=== PATIENT | female | born 2000 | race Caucasian/White ===

== ENCOUNTER 2020-10-30 01:53 | Observation (INO) | payer OTHER, SELFPAY ==
[2020-10-30] VITALS (26 sets, daily range): BP systolic 102–145; BP diastolic 53–91; PULSE 99–154; RESP 13–25; TEMP 35.8–39.8; O2SAT 97–100; BMI 17.9
--- NOTE | ~2020-10-30 | CT_ITS ---
EXAMINATION: CT abdomen pelvis w con DATE: 10/30/2020 03:34 INDICATION: Right flank pain. TECHNIQUE: Computed tomography (CT) of the abdomen and pelvis was performed with 100 mL Omnipaque 350 intravenous contrast. Automated exposure control and iterative reconstruction technique were employe d. The dose-length product was 209.56 mGy-cm. COMPARISON: None. FINDINGS: The visualized portions of the lung bases are clear without pneumonia or pleural effusion. The heart size is normal. No pericardial effusion. The liver, gallbladder, spleen, pancreas, and adre nal glands are normal. There is a 5 mm cyst in left kidney. Right kidney demonstrates a striated neph rogram, consistent with pyelonephritis. There are no dilated loops of bowel. The appendix is not visu alized. There are no pathologically enlarged lymph nodes. There is trace physiologic fluid in the pel vis. There is levocurvature of lumbar spine. IMPRESSION: 1. Right-sided pyelonephritis. Reviewed, dictated and finalized at location A.
--- NOTE | 2020-10-30 02:09 | PC.NURSE ---
pt to ed c mother c/o right flank pain. reports she may have had urinary frequency/burning but it felt better. woke up last night with increased pain. tearful. febrile on arrival.
[2020-10-30] MEDS: SODIUM CHLORIDE 0.9% IV 1,000 ML 999 ML IV CONT ×2 (02:36→03:35)
[2020-10-30 02:49] LABS: Basophils Percent Auto 0.3 % (0.2-1.2); Eosinophils Percent Auto 0.3 % (0-4.4); Hematocrit 40.6 % (37.0-47.0); Hemoglobin 13.4 g/dL (12.0-15.0); Immature Granulocyte Absolute 0.02 K/mm3 (0.00-0.031); Immature Granulocyte Percent A 0.2 % (0-0.5); Lymphocytes Absolute Auto 0.86 K/mm3 (0.9-3.2); Lymphocytes Percent Auto 9.1 % (18.3-44.2); Mean Corpuscular Hemoglobin 30.9 pg (26-34); Mean Corpuscular Volume 93.8 fl (80-100); Mean Platelet Volume 9.5 fl (7.4-10.4); Monocytes Absolute Auto 1.2 K/mm3 (0.1-0.6); Monocytes Percent Auto 12.9 % (2.6-8.5); Neutrophils Absolute Auto 7.3 K/mm3 (1.3-6.7); Neutrophils Percent Auto 77.2 % (45.5-73.1); Platelet Count Result 277 k/mm3 (150-375); Red Blood Count 4.33 M/mm3 (4.2-5.4); Red Cell Distribution Width 12.4 % (11.5-14.5); White Blood Count 9.5 K/mm3 (4.5-10.0)
[2020-10-30 02:59] LABS: Add Urine Microscopic? YES; Appearance Urine Clear (Clear); Bilirubin Urine Negative (Negative); Blood Urine Negative (Negative); Color Urine Yellow (Yellow); Glucose Urine UA Negative (Negative); Ketones Urine Negative (Negative); Leukocyte Esterase Ur 1+ LEU/UL (Negative); Mucus Urine Rare /lpf; Nitrate Urine Negative (Negative); Protein Urine Negative (Negative); Specific Grav Ur 1.012 (1.001-1.035); Squamous Epithelial Cell Urine Rare /hpf (Few); Urobilinogen Urine Negative mg/dL (<2.0); WBC Urine 31-50 /hpf
[2020-10-30 03:01] LABS: Lactic Acid Reflex 0.9 mmol/L (0.7-2.1)
[2020-10-30 03:02] LABS: Alanine Aminotransferase 17 U/L (4-35); Albumin Level 4.8 g/dL (3.5-5.1); Alkaline Phosphatase 67 U/L (38-126); Anion Gap 11 mmol/L (8-16); Aspartate Amino Transferase 33 U/L (14-36); Bilirubin,Total 0.3 mg/dL (0.2-1.3); Blood Urea Nitrogen 6 mg/dL (7-17); Calcium 9.3 mg/dL (8.4-10.2); Carbon Dioxide 26 mmol/L (22-30); Chloride 103 mmol/L (98-107); Estimated CRCL calculation 97 ml/min; Estimated Glomerular Filt Rate > 60; Glucose 102 mg/dL (65-105); Potassium 3.6 mmol/L (3.4-5.0); Sodium 140 mmol/L (137-145)
--- NOTE | 2020-10-30 04:06 | ED.GENADULT ---
HPI - General Adult General Chief complaint: Urogenital-Female Stated complaint: Kidney issue Time Seen by Provider: 10/30/20 01:57 Source: RN notes reviewed History of Present Illness HPI narrative: Patient presents to emergency department from home for right flank pain and fever. Patient states symptoms initially began on October 23 with some mild right-sided back pain that improved after couple days she states she had some mild dysuria during this time it also improved and symptoms came back several days later and progressively worsened patient states that starting last night began have severe right flank pain with a fever at home states this is associated dysuria she states she took Tylenol at approximately 7 PM this evening has had no other medication she denies any abdominal pain nausea or vomiting or any other symptoms Related Data Home Medications Medication Instructions Recorded Confirmed norgestimate-ethinyl estradiol 1 tablet PO DAILY 10/30/20 [Estarylla] Allergies Allergy/AdvReac Type Severity Reaction Status Date / Time Cephalosporins Allergy Rash Verified 10/30/20 01:57 Review of Systems Review of Systems: Narrative: Gen.: Denies fevers or chills ENT: Denies congestion Respiratory: Denies shortness of breath or cough CV: Denies chest pain or palpitations GI: Denies abdominal pain nausea, emesis or diarrhea reports flank pain see HPI Musculoskeletal: Denies back pain or muscle pain Neuro: Denies numbness, tingling, weakness or focal weakness Skin: Denies rash Except as documented, all other systems reviewed and negative [facility] Past Medical History Medical History (Updated 10/30/20 @ 04:42 by Hal Andino DO) Ovarian cyst Social History Social History (Updated 10/30/20 @ 04:07 by Hal Andino DO) Smoking status: Never smoker Gender identity (if verbalized by the patient): Female Sexual Orientation (if Verbalized by the Patient): Straight or Heterosexual Exam Narrative: Exam Narrative: APPEARANCE: No acute distress, nontoxic, resting in bed EYES: EOMI HEENT: Normocephalic, atraumatic, OMM RESPIRATORY: No respiratory distress Clear to auscultation bilaterally with no rhonchi wheezing or rales. CARDIOVASCULAR: Tachycardic and regular without murmurs rubs or gallops. ABDOMINAL: Soft, nontender, nondistended, no rebound or guarding mild right flank tenderness MUSCULOSKELETAl: Moves all extremities. No clubbing, cyanosis or edema. NEURO: Awake and alert. Following commands, speech normal, no focal deficits SKIN:: Warm, dry. No rashes lesions or abrasions PSYCHIATRIC: Normal affect/mood, Course Course Emergency Course: Plain CT scan I did reevaluate the patient there is no tenderness in the left lower quadrant. Suspect ovarian cyst as the patient does have a history of ovarian cyst Discussed with Dr. Mcclendon presentation work-up agrees with admission at this time Discussed with patient and family results of workup and diagnosis. Discussed need for admission. Patient and family understand and agree to current treatment plan Vital Signs Vital signs: Vital Signs Temperature 103.7 F H 10/30/20 01:54 Pulse Rate 136 H 10/30/20 01:54 Respiratory Rate 22 H 10/30/20 01:54 Blood Pressure 137/88 10/30/20 01:54 Pulse Oximetry 100 10/30/20 01:54 Temperature 103.7 F H 10/30/20 01:54 Pulse Rate 113 H 10/30/20 04:01 Respiratory Rate 13 10/30/20 04:01 Blood Pressure 111/72 10/30/20 04:01 Pulse Oximetry 100 10/30/20 04:01 Medical Decision Making Vital Signs Vital Signs: Vital Signs Temperature 103.7 F H 10/30/20 01:54 Pulse Rate 136 H 10/30/20 01:54 Respiratory Rate 22 H 10/30/20 01:54 Blood Pressure 137/88 10/30/20 01:54 Pulse Oximetry 100 10/30/20 01:54 Temperature 103.7 F H 10/30/20 01:54 Pulse Rate 113 H 10/30/20 04:01 Respiratory Rate 13 10/30/20 04:01 Blood Pressure 111/72 10/30/20 04:01 Pulse Oximetry 100
--- NOTE | 2020-10-30 05:15 | PC.NURSE ---
Report to [facility]. Pt admitted to room 343-1.
--- NOTE | 2020-10-30 05:24 | ADMGEN ---
This patient, Breonna Del Rosario, was admitted to Medical Room 343-01. Patient/family oriented to hospital policies and general routines including ID bracelet, bed and alarms, visiting hours, pain management, procedures, bathroom and other care routines, personal items, smoking policy, room service/diet, and visiting hours. Information on how to activate the Rapid Response Team has been discussed. Patient/Family are encouraged to report perceived risks to care and to ask questions if they do not understand what they are told or what they should do.
[2020-10-30] MEDS: SODIUM CHLORIDE 0.9% IV 1,000 ML 125 ML IV CONT (05:41)
--- NOTE | 2020-10-30 11:42 | PM.IMHP ---
H&P: HPI History of Present Illness Date/Time: 10/30/20 11:42 Chief Complaint: Right flank pain Narrative: date of admission: 10/30/2020 date of service: 10/30/2020 Breonna Del Rosario is a 20-year-old healthy female who presented to the emergency department on 10/30/2020 with complaints of right-sided back pain. She reports approximately 2 weeks ago she thought that she had a UTI as she was experiencing dysuria, malodorous urine, and urgency. This felt similar to a UTI she has had in the past. She started taking cranberry pills, yogurt, and drinking lots of water. She did not seek medical evaluation and did not take any antibiotics as she felt that her symptoms resolved. On 10/23/2020, she developed pain in her right back just below her ribs. She had just started her menstrual period, and thought maybe the pain was due to that. She was taking Pamprin and this did improve her back pain somewhat. Last night, she developed chills and felt achy all over. She did not take her temperature but felt certain she had a fever as she was hot and sweaty. She also developed sharp pain in her right back and flank that she rated as 7/10. This prompted her to seek emergency care. Upon presentation to the emergency department, she was febrile at 103.7?, tachycardic with heart rate 136, and tachypneic. CBC and BMP unremarkable and she did not have leukocytosis, lactic acid 0.9, urinalysis with 1+ leuk est, and negative bedside test. Abdomen/pelvis CT scan showed striated nephrogram of right kidney consistent with right-sided pyelonephritis. At the time of my evaluation, her right back and flank pain have improved with pain medications. She denies dysuria, urgency, hematuria, dark urine, or malodorous urine. She is being admitted to the hospitalist service for observation. Supervising physician for this history and physical is Dr. Sandy Wilson. Review of Systems Review of Systems: Narrative: All systems reviewed with pertinent positives and negatives as per HPI. Additionally, she endorses nausea but has not had any episodes of emesis. No diarrhea. She has been having regular, formed stools. Her appetite has been decreased over the past 2 days. She does feel quite fatigued and was not able to sleep last night. She denies dizziness or lightheadedness. She is able to ambulate around her hospital room without difficulty. Denies shortness of breath or chest pain. Endorses chronic sinus congestion. She has a known left ovarian cyst but denies left adnexal pain. she has regular periods on OCPs. She completed the Moderna COVID-19 vaccination on 10/18/2020 [facility] Past Medical History Medical History (Updated 10/30/20 @ 11:54 by Juliet Sanchez PA-C) Ovarian cyst Small bowel obstruction following appendectomy Surgical History Surgical History (Updated 10/30/20 @ 11:54 by Juliet Sanchez PA-C) History of appendectomy Family History Family History (Updated 10/30/20 @ 05:53 by Chandrika Christian RN) Father Hypertension Grandparent Dementia Parkinson disease Social History Social History (Updated 10/30/20 @ 11:58 by Juliet Sanchez PA-C) Social History: Ms. Del Rosario lives at home her mother. she is independent in her daily activities. She works at [employer] as a [employer] and is enrolled in college courses online. She recently moved to the area and needs to establish with a new PCP. She designates her mother, Shena, as her surrogate decision maker and would like to be a full code. Smoking status: Never smoker Second hand tobacco smoke exposure: No Alcohol intake: never Substance use: never Living arrangements: with family Occupation/Education: occupation Gender identity (if verbalized by the patient): Female Sexual Orientation (if Verbalized by the Patient): Straight or Heterosexual Spiritual care concerns: No Meds Home Medications and Allergies Home Medications Medication Instruct
[2020-10-30] MEDS: HYDROcodone/acetaminophen (*CRX) 5-325 MG TABLET 1 TAB PO (12:38)
[2020-10-30] MEDS: SODIUM CHLORIDE 0.9% IV 1,000 ML 65 ML IV CONT (12:41)
[2020-10-30] MEDS: ACETAMINOPHEN 325 MG TABLET 650 MG PO ×2 (18:13→21:48)
[2020-10-31] MEDS: SODIUM CHLORIDE 0.9% IV 1,000 ML 65 ML IV CONT (03:51)
[2020-10-31] MEDS: ACETAMINOPHEN 325 MG TABLET 650 MG PO ×3 (04:06→12:48)
[2020-10-31 06:00] VITALS: BP 103/55; PULSE 76; RESP 16; TEMP 36.3; O2SAT 100
[2020-10-31 06:43] LABS: Alanine Aminotransferase 12 U/L (4-35); Albumin Level 3.1 g/dL (3.5-5.1); Alkaline Phosphatase 45 U/L (38-126); Anion Gap 6 mmol/L (8-16); Aspartate Amino Transferase 23 U/L (14-36); Basophils Percent Auto 0.3 % (0.2-1.2); Bilirubin,Total 0.2 mg/dL (0.2-1.3); Blood Urea Nitrogen 5 mg/dL (7-17); Calcium 8.2 mg/dL (8.4-10.2); Carbon Dioxide 25 mmol/L (22-30); Chloride 105 mmol/L (98-107); Eosinophils Percent Auto 0.1 % (0-4.4); Estimated CRCL calculation 119 ml/min; Estimated Glomerular Filt Rate > 60; Glucose 94 mg/dL (65-105); Hematocrit 33.8 % (37.0-47.0); Hemoglobin 10.9 g/dL (12.0-15.0); Immature Granulocyte Absolute 0.05 K/mm3 (0.00-0.031); Immature Granulocyte Percent A 0.5 % (0-0.5); Lymphocytes Absolute Auto 1.73 K/mm3 (0.9-3.2); Lymphocytes Percent Auto 15.8 % (18.3-44.2); Mean Corpuscular HGB Conc 32.2 g/dl (32-36); Mean Corpuscular Hemoglobin 30.8 pg (26-34); Mean Corpuscular Volume 95.5 fl (80-100); Mean Platelet Volume 9.6 fl (7.4-10.4); Monocytes Absolute Auto 1.7 K/mm3 (0.1-0.6); Monocytes Percent Auto 15.4 % (2.6-8.5); Neutrophils Absolute Auto 7.4 K/mm3 (1.3-6.7); Neutrophils Percent Auto 67.9 % (45.5-73.1); Platelet Count Result 235 k/mm3 (150-375); Potassium 3.3 mmol/L (3.4-5.0); Red Blood Count 3.54 M/mm3 (4.2-5.4); Red Cell Distribution Width 12.7 % (11.5-14.5); Sodium 136 mmol/L (137-145); White Blood Count 10.9 K/mm3 (4.5-10.0)
[2020-10-31 09:28] VITALS: O2SAT 99
[2020-10-31] MEDS: POTASSIUM CHLORIDE 20 MEQ TABLET PO (09:51)
--- NOTE | 2020-10-31 12:46 | PCNSR ---
On 10/31/20, the student, [Denise Arredondo ], provided care and completed [facility] documentation on this patient. I have reviewed the student's documentation and agree with the findings.
[2020-10-31 14:00] VITALS: BP 104/53; PULSE 100; RESP 20; TEMP 37.2; O2SAT 100
--- NOTE | 2020-10-31 14:24 | PM.DS ---
DS: Admitting Diagnosis Admitting Diagnosis Admitting Diagnosis: Pyelonephritis DS: Discharge Diagnosis Discharge Diagnosis (1) Pyelonephritis: Code(s): N12 - Tubulo-interstitial nephritis, not specified as acute or chronic Status: Acute Assessment and Plan: Presented with right flank pain and evidence of pyelonephritis on CT scan Started on IV Levaquin; received 2 days of IV antibiotics Urine culture with growth of 50-100k E coli with susceptibility to Levaquin Continue with PO Levaquin for an additional 10 days Tylenol as needed for pain (2) Sepsis: Code(s): A41.9 - Sepsis, unspecified organism Status: Acute Assessment and Plan: Present on admission with fever up to 103.5?, tachypnea, and tachycardia. Normal lactic acid level. Normal white count. Source of infection is pyelonephritis. she was started on IV antibiotics and rehydrated with IV fluids. Tachypnea and tachycardia resolved and she remained afebrile >24 hours. Preliminary blood cultures negative to date and final cultures will be monitored. (3) Ovarian cyst: Code(s): N83.209 - Unspecified ovarian cyst, unspecified side Status: Acute Assessment and Plan: Previously diagnosed with no acute issues at this time. Continue OCPs and billing adjudicator follow-up DS: Summary Hospital Course Hospital Course: Date of admission: 10/30/2020 Date of discharge: 10/31/2020 Breonna Del Rosario is a 20-year-old healthy female who presented to the emergency department on 10/30/2020 with complaints of right-sided back and flank pain and 2 weeks prior had dysuria and malodorous urine. Please see H&P for details. Upon presentation to the emergency department, she was febrile at 103.7?, tachycardic with heart rate 136, and tachypneic. CBC and BMP unremarkable and she did not have leukocytosis, lactic acid 0.9, urinalysis with 1+ leuk est, and negative bedside test. Abdomen/pelvis CT scan showed striated nephrogram of right kidney consistent with right-sided pyelonephritis. She was admitted to the hospitalist service for further evaluation and management. Please see above for further details. She was treated with IV Levaquin and will continue oral antibiotics to complete a full course. She was feeling much better and was very eager for discharge home. Her fever resolved and her pain improved significantly. she was able to tolerate oral intake and was feeling nearly back to her usual state of health. Given her overall improvement, she was determined to no longer require inpatient care and was felt to be stable for discharge. We discussed worrisome signs and symptoms for which to return and she was educated on her medications. She was discharged in hemodynamically stable condition on 10/31/2020. She will need to establish care with a primary care physician. She was provided information for the stallion manager primary care physician and will need to follow-up in 1-2 weeks for monitoring. Status at Discharge Functional status at discharge: independent ambulation Overall status at discharge: patient is progressing back to baseline Time Spent with Patient Time attestation: Total time spent providing and/or coordinating discharge services:45 minutes Time spent: Greater than 30 minutes Exam Narrative: Exam Narrative: Ms. Del Rosario is a well-nourished, well-appearing 20-year-old female who is lying supine in bed. She appears comfortable and is in NARD. Neuro: awake, alert and oriented x4, speech clear, no focal neuro deficits noted HEENMT: normocephalic, atraumatic, EOMI, sclerae anicteric, moist oral mucosa Neck: supple, no lymphadenopathy Respiratory: clear to auscultation bilaterally, nonlabored breathing Cardio: regular rate, regular rhythm with S1-S2 Abdomen: nondistended, normoactive bowel sounds, soft, nontender to palpation, no rigidity or guarding : no CVA tenderness, no flank tenderness Extremities: no edema, erythema, or
== END 2020-10-31 15:18 | disposition home or self-care (01) ==
LOC: ANHED 04:45 → ANH3MED 04:48
PROVIDERS: Admitting Provider Internal Medicine; Emergency Provider Emergency Medicine; Visit Provider Physician Assistant
DX: N12 Tubulo-interstitial nephritis, not specified as acute or chronic (principal); A41.9 Sepsis, unspecified organism; N83.209 Unspecified ovarian cyst, unspecified side
CPT/HCPCS: 36415; 74177; 80053; 81001; 81025; 83605; 85025; 87040; 87077; 87086; 87088; 87186; 96361; 96365; 96366; 96367; 96376; 99285; A9270; G0378; J0131; J1956; J7030; Q9967

== ENCOUNTER 2021-08-14 16:16 | Emergency (ER) | payer OTHER, SELFPAY ==
[2021-08-14 16:41] VITALS: BP 114/66; PULSE 115; RESP 18; TEMP 39.2; O2SAT 98
[2021-08-14 17:05] VITALS: TEMP 39.2
[2021-08-14] MEDS: IBUPROFEN 600 MG TABLET PO (17:05)
--- NOTE | 2021-08-14 17:10 | ED.URI ---
HPI - URI/Sore Throat General Chief Complaint: Upper Respiratory Infection Stated Complaint: cough,fever,sorethroat Time Seen by Provider: 08/14/21 17:00 Source: patient Mode of arrival: ambulatory Limitations: no limitations History of Present Illness HPI Narrative: 21-year-old female with no significant medical history presents with complaint of sore throat, cough, body aches, fatigue, fever and chills for 3 days. Denies chest pain or shortness of breath. Denies nausea vomiting diarrhea. Took DayQuil prior to arrival. No COVID exposure. Did not get flu vaccine this fall. All systems reviewed and negative except as noted above. Related Data Home Medications Medication Instructions Recorded Confirmed ergocalciferol (vitamin D2) 1,250 mcg PO WEEKLY 08/14/21 08/14/21 etonogestrel-ethinyl estradiol 1 vag ring VAGINAL DIRECTED 08/14/21 08/14/21 Allergies Allergy/AdvReac Type Severity Reaction Status Date / Time Cephalosporins Allergy Rash Verified 08/14/21 17:01 Review of Systems Review of Systems: CONSTITUTIONAL: Reports fever, chills, or sweats. EYES: Denies visual changes, redness, or discharge. ENT: Reports rhinorrhea, congestion, sore throat. Denies otalgia. CARDIOVASCULAR: Denies chest pain, palpitations, or edema. RESPIRATORY: Reports cough. Denies dyspnea. GASTROINTESTINAL: Denies abdominal pain, nausea, vomiting, or diarrhea. GENITOURINARY: Denies dysuria or hematuria. SKIN: Denies rash or itching. MUSCULOSKELETAL: Denies back pain, joint pain, or myalgia. NEUROLOGIC: Denies headache, numbness, or weakness. PSYCHIATRIC: Denies anxiety or depression. All other systems reviewed are negative, except as documented in HPI. [facility] Past Medical History Medical History (Updated 08/14/21 @ 17:09 by Denise Pelayo NP) Ovarian cyst Small bowel obstruction following appendectomy Surgical History Surgical History (Updated 10/30/20 @ 11:54 by Juliet Sanchez PA-C) History of appendectomy Family History Family History (Updated 10/30/20 @ 05:53 by Chandrika Christian RN) Father Hypertension Grandparent Dementia Parkinson disease Social History Social History (Updated 10/30/20 @ 11:58 by Juliet Sanchez PA-C) Social History: Ms. Del Rosario lives at home her mother. she is independent in her daily activities. 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 She recently moved to the area and needs to establish with a new PCP. She designates her mother, Shena, as her surrogate decision maker and would like to be a full code. Smoking status: Never smoker Second hand tobacco smoke exposure: No Alcohol intake: never Substance use: never Gender identity (if verbalized by the patient): Female Sexual Orientation (if Verbalized by the Patient): Straight or Heterosexual Spiritual care concerns: No Comments At time of signature, agree with nursing past medical, surgical, social and family history. There is no relevant family history pertinent to the presenting complaint. Exam Narrative: GENERAL: This is a well-nourished, well-developed patient, patient is ill-appearing but in no distress. HEAD: normocephalic, atraumatic. EYES: PERRL. Sclera clear/white. Vision is grossly intact. EARS: External ears normal, auditory canals clear and without drainage, TMs normal without perforation. Hearing grossly intact. NOSE: External nose normal with no obvious nasal discharge, nares without redness, no rhinorrhea. THROAT: Mucous membranes moist, erythema to posterior pharynx. NECK: Neck supple, non-tender without lymphadenopathy, masses or thyromegaly. CARDIOVASCULAR: Tachycardic and normal rhythm without murmurs, gallops, or rubs. RESPIRATORY: Clear to auscultation. Breath sounds equal bilaterally. No wheezes, rales, or rhonchi. SKIN: warm, Dry, intact with no suspicious lesions or rash, good texture and turgor. NEURO: awake, alert, and oriented to person, place
[2021-08-14 17:31] VITALS: TEMP 38.2
== END 2021-08-14 17:31 | disposition home or self-care (01) ==
PROVIDERS: Emergency Provider Nurse Practitioner Family
DX: J10.1 Influenza due to other identified influenza virus with other respiratory manifestations (principal)
CPT/HCPCS: 87081; 87804; 87880; 99213; A9270; G0463